=== PATIENT | male | born 1950 | race American Indian/Alaskan Native ===

== ENCOUNTER 2017-01-25 15:44 | Outpatient (CLI) | payer BC | END 2017-01-25 15:45 | disposition home or self-care (01) | LOC: LAB 15:44 | PROVIDERS: ATTEND Internal Medicine Nephrology | DX: R94.4 Abnormal results of kidney function studies (principal) | CPT/HCPCS: 82565; 82570; 82575; 84156 ==

== ENCOUNTER 2018-11-02 15:54 | Outpatient (CLI) | payer BC ==
[2018-11-02 16:14] LABS: Hematocrit 38.1 % (35.5-45.6); Hemoglobin 12.5 gm/dl (11.8-15.2); Mean Corpuscular HGB Conc 33 % (32-34); Mean Corpuscular Volume 84 fl (84-94); Platelet Count 199 K/mm3 (140-440); Red Blood Count 4.53 M/mm3 (3.65-5.03); Red Cell Distribution Width 14.6 % (13.2-15.2)
[2018-11-02 16:33] LABS: Creatinine,Urine 230.7 mg/dL (0.1-20.0); Protein/Creatinine Ratio,Urine 0.14
[2018-11-02 16:34] LABS: Albumin 4.1 g/dL (3.9-5); Calcium 9.1 mg/dL (8.4-10.2)
== END 2018-11-02 15:55 | disposition home or self-care (01) ==
LOC: LAB 15:54
PROVIDERS: ATTEND Internal Medicine
DX: R94.4 Abnormal results of kidney function studies (principal)
CPT/HCPCS: 36415; 80053; 82570; 84156; 85027